=== PATIENT | male | born 1965 | race Two or more races ===

== ENCOUNTER 2019-10-04 07:38 | Outpatient (CLI) | payer OTHER | END 2019-10-04 08:04 | disposition home or self-care (01) | LOC: NUCLEAR 07:38 | PROVIDERS: ATTEND Internal Medicine Cardiovascular Disease | DX: R07.89 Other chest pain (principal); I10 Essential (primary) hypertension ==

== ENCOUNTER 2019-11-30 17:09 | Emergency (ER) | payer OTHER ==
[~2019-11-30] VITALS: Ht 188 cm; Wt 89.8 kg
[2019-11-30] MEDS ORDERED: ZOCOR20 MG (17:29)
[2019-11-30] MEDS ORDERED: HYZAAR 100-12.1 EACH (17:29)
== END 2019-11-30 19:51 | disposition home or self-care (01) ==
LOC: ER 17:09
DX: M94.0 Chondrocostal junction syndrome [Tietze] (principal); R07.89 Other chest pain; F41.8 Other specified anxiety disorders